=== PATIENT | female | born 1955 | race Caucasian/White ===

== ENCOUNTER → 2023-10-30 12:02 | Outpatient (REF) | payer MEDICARE, SELFPAY | LOC: WDC 12:02 | PROVIDERS: ATTENDING PHYSICIAN Physician Assistant Medical | DX: Z12.31 Encounter for screening mammogram for malignant neoplasm of breast (principal) | CPT/HCPCS: 77063; 77067 ==

== ENCOUNTER 2024-12-12 11:50 | Emergency (ER) | payer MEDICARE, SELFPAY ==
[2024-12-12 11:53] VITALS: BP 146/85
[2024-12-12 12:47] LABS: Urine Albumin 1+ (Neg - Trace); Urine Bilirubin Negative (Negative); Urine Character Clear (Clear); Urine Color Yellow; Urine Glucose Negative (Negative); Urine Ketone Negative (Negative); Urine Leukocyte 1+ (Negative); Urine Nitrite Negative (Negative); Urine Occult Blood Negative (Negative); Urine Urobilinogen Negative (Neg - 1+)
--- NOTE | 2024-12-12 12:53 | ED.GENMED ---
History of Present Illness
General
Chief Complaint: Breathing Problem
Source: patient
Exam Limitations: none
Time Seen by Provider: 12/12/24 12:41
History of Present Illness
History of Present Illness:
69yoF with a history of hypertension, hypothyroidism, and GERD presenting with her for evaluation of upper back pain. Patient reports developing pain in her bilateral upper back 3 days ago. She had a 2 hour flight the day before her
symptoms began. She denies any injuries to the area. Pain is worse with movement as well as breathing. She has been taking ibuprofen without any relief. She denies any calf pain, leg swelling, chest pain, dizziness, syncope. She was seen by her
PCP today for these symptoms and was sent to the ED for concern for a PE. Oxygen saturation was reportedly 90-93% in the office. Oxygen saturation 97% on arrival.
Past History
Past History
ED Past Medical History: HTN
ED Past Surgical History: Cholecystectomy, Gynecological, Orthopedic and Other
Social History
Tobacco: Non-smoker
Employment: Employed
Phy Exam
Physical Exam
Physical Exam:
Patient having a hard time sitting due to the pain
General Physical Exam
General Presentation: well appearing and no apparent distress
General age: appears stated age
General Skin: warm and dry
General Habitus: normal
General Mental: alert
ENT Exam
ENT Exam: normocephalic
Cardiovascular Exam
Cardiovascular Exam: regular rate/rhythm, no edema and systolic murmur
Pulmonary Exam
Pulmonary Exam: lungs clear, no respiratory distress, no rales, no crackles, no rhonchi and no wheezing
Neurological Exam
Neurological Exam: alert
[place] Coma Scale
Eye Opening: Spontaneous
Verbal Response: Oriented
Motor Response: Obeys Commands
GCS Total Score: 15
Musculoskeletal Exam
Musculoskeletal Exam: other (No tenderness to palpation of the thoracic region. No skin changes. )
Skin Exam
Skin Exam: normal color and warm/dry
Psychiatric Exam
Psychiatric Exam: normal mood/affect
Scores
Heart Failure Risk
Heart Failure Risk Score: Not Applicable
Course
Orders/Labs/Results
Orders:
Orders
12/12/24 11:56
ECG [Electrocardiogram (*1)] Urgent
Reason for Study: Shortness of Breath
12/12/24 11:57
EKG- Treatment ONCE
12/12/24 12:15
Urine Culture Reflexed from UA [Urinalysis Reflex To Culture] Urgent
Date Specimen was Collected: 12/12/24
Time Specimen was Collected: 12:11
Urine Microscopic Reflex Cult Urgent
Urine Culture Urgent
SCARLETT Source: U
Specimen Description:
Date Specimen was Collected: 12/12/24
Time Specimen was Collected: 12:11
12/12/24 12:51
CT Chest PE Study Urgent
Comment:
Reason For Exam: Pleuritic upper back pain
EKG- Treatment ONCE
Oxycodone/Acetaminophen [Percocet 5/325] 1 tablet PO NOW STA
12/12/24 13:15
Complete Blood Count/With Diff Urgent
Comprehensive Metabolic Panel Urgent
NT-proBNP Urgent
Troponin I Urgent
12/12/24 13:52
Potassium Chloride [KCl] 40 meq PO NOW STA
Abnormal Lab Results
12/12/24 12/12/24
12:15 13:15
RBC 3.98 L 10^6/uL
(4.20-5.40)
Hgb 11.4 L g/dL
(12.0-16.0)
Hct 33.0 L %
(37.0-47.0)
Absolute Neuts (auto) 7.0 H 10^3/uL
(1.4-6.5)
Absolute Monos (auto) 0.8 H 10^3/uL
(0.1-0.6)
Potassium 3.0 L mmol/L
(3.5-5.1)
Carbon Dioxide 33 H mmol/L
(22-30)
BUN 18 H mg/dl
(7-17)
Glucose 107 H mg/dl
(70-99)
Leukocyte Esterase Rfl 1+ A
(Negative)
Urine Albumin (Reflex) 1+ A
(Neg - Trace)
12/12/24 13:15
12/12/24 13:15
Vital Signs
Initial and Last Documented VS:
Initial Vital Signs
Temp Pulse Resp BP Pulse Ox
98.1 F 63 20 146/85 97
12/12/24 11:53 12/12/24 11:53 12/12/24 11:53 12/12/24 11:53 12/12/24 11:53
Last Documented Vital Signs
Temp Pulse Resp BP Pulse Ox
97.6 F 68 18 113/65 99
12/12/24 13:23 12/12/24 17:46 12/12/24 17:46 12/12/24 17:46 12/12/24 17:46
MDM/Problems Addressed
Differential Diagnosis Includes:
69yoF here with upper back pain x 3 days. Worse with movement and breathing. Recent flight to [place]. Sent to the ED by PCP for concern for PE. VSS. She is having a difficult time sitting during exam due to pain. Lungs CTA. No pitting edema or
skin changes to the lower extremities. Differential diagnosis includes but is not limited to: musculoskeletal, PE, pneumonia
Initial ED plan: Check cardiac labs, EKG, and CTA chest. Percocet for pain.
*EKG
Interpreted by ED Provider?: Yes
EKG Intrepretation Date: 12/12/24
Heart Rate: 61
Rate: normal
Rhythm: sinus and sinus arrhythmia
Delta: left axis deviation
Interval: normal interval
QRS Pattern: normal QRS
Ischemia: no ischemia
*Critical Care Note
Total Time (30-74mins, 75-104mins- exclusive of procedures): Not Applicable
Update Note
Update Note:
EKG shows normal sinus rhythm without ischemic changes. Troponin and BNP both normal. Potassium 3.[address] is negative for pulmonary embolism. Imaging does show severe multilevel degenerative disc disease in lower cervical and
thoracic region which is likely culprit of her symptoms. There is also moderate calcific atherosclerotic plaque in the coronary arteries which patient was notified of. No indication for hospitalization. Patient requesting prescription pain
medication and prescription for oxycodone was provided. She has an appointment scheduled with her PCP in 2 days. She was also advised to follow-up with orthopedics. Patient discharged in stable condition.
ED Attending Note
-
Portions of this chart may have been created with voice recognition software.� Occasional wrong word or��sound alike� substitutions may have occurred due to the inherent limitations of voice recognition software.
Discharge Plan
Departure
Patient Disposition: Home (Routine Discharge)
Date of Disposition: 12/12/24
Time of Disposition: 18:07
Patient with high blood pressure during this ER visit?: No
Discharge Problem:
Acute upper back pain, Degenerative disc disease
Instructions: Upper Back Pain ED
Prescriptions:
New
oxycodone 5 mg tablet
5 mg PO Q6H PRN (Reason: Pain) Qty: 12 0RF
Referrals:
Yvonne Cutler PA-C [Family Provider] -
Richard Blanchard MD [Active] -
Activity Restrictions/Additional Instructions:
Take Tylenol and ibuprofen for pain. Use lidocaine patches daily (12 hours on, 12 hours off). Take oxycodone only as needed for severe breakthrough pain.
Please follow-up with your family doctor and orthopedics. Return to the ER with any new or worsening symptoms.
Interventions
Interventions:
*Risk Screen - Suicide Last Done: 12/12/24 13:23
*General Assessment Last Done: 12/12/24 11:53
*Neglect/Abuse Screening Last Done: 12/12/24 13:23
*ED- Fall Risk Assessment Last Done: 12/12/24 13:23
*ED COVID-19 Vaccine History Last Done: 12/12/24 13:23
*Nursing Disposition Last Done: 12/12/24 18:15
ED- Cardiac Assessment Last Done: 12/12/24 13:23
ED- Pulmonary Assessment Last Done: 12/12/24 13:23
Discharge Date and Time
Discharge Date/Time: 12/12/24 18:15
Print Language: ALBANIAN
[2024-12-12 13:15] VITALS: BP 115/73
[2024-12-12] MEDS: PERCOCET 5/325 1 TABLET PO (13:20)
[2024-12-12 13:22] LABS: % Basophils 0.4 % (0-2); % Eosinophils 0.5 % (0-6); % Immature Granulocytes 0.3 % (0-0.5); % Monocytes 7.6 % (1.7-9.3); % Neutrophils 70.2 % (42.2-75.2); Absolute Eosinophils 0.1 10^3/uL (0-0.7); Absolute Lymphocytes 2.1 10^3/uL (1.2-3.4); Absolute Monocytes 0.8 10^3/uL (0.1-0.6); Hemoglobin 11.4 g/dL (12.0-16.0); Mean Corp Hgb Conc. 34.5 g/dL (33.0-37.0); Mean Corpuscular Hgb 28.6 pg (27.0-31.0); Mean Corpuscular Volume 82.9 fL (81.0-99.0); Mean Platelet Volume 10.3 fL (7.4-10.4); Nucleated Red Blood Cells % 0 %; Platelet Count 225 10^3/uL (130-400); Red Blood Cell Count 3.98 10^6/uL (4.20-5.40); Red Cell Dist. Width 13.8 % (11.5-14.5)
[2024-12-12 13:23] VITALS: BP 115/73; BMI 24.1
[2024-12-12 13:47] LABS: ALT (SGPT) 12 U/L (0-35); AST (SGOT) 18 U/L (14-36); Albumin 3.9 g/dl (3.5-5.0); Alkaline Phosphatase 71 U/L (38-126); Blood Urea Nitrogen 18 mg/dl (7-17); Calcium 9.4 mg/dl (8.4-10.2); Carbon Dioxide 33 mmol/L (22-30); Chloride 100 mmol/L (98-107); Estimated Creatinine Clearance 65 ml/min; Glucose 107 mg/dl (70-99); NT-proBNP 250 pg/ml; Sodium 142 mmol/L (135-145); Total Bilirubin 0.7 mg/dl (0.2-1.3); Total Protein 6.6 g/dl (6.3-8.2); Troponin I < 0.012 ng/ml; eGFR > 60.00
[2024-12-12 14:00] VITALS: BP 123/80
[2024-12-12 14:29] LABS: Urine Amorphous Seen; Urine Squamous Cell >30 /LPF (Few)
[2024-12-12 14:31] LABS: Urine Red Blood Cell 0-2 /HPF (0-2)
[2024-12-12] MEDS: KCL 40 MEQ PO (15:40)
[2024-12-12 15:43] VITALS: BP 116/80
--- NOTE | 2024-12-12 15:50 | EDRN ---
Mara HALE currently at the pts bedside
[2024-12-12 17:46] VITALS: BP 113/65
== END 2024-12-12 18:15 | disposition home or self-care (01) ==
LOC: EMR 11:50
PROVIDERS: Physician Assistant; EMERGENCY PHYSICIAN Emergency Medicine; FAMILY PHYSICIAN Physician Assistant Medical
DX: M50.30 Other cervical disc degeneration, unspecified cervical region (principal); M51.34 Other intervertebral disc degeneration, thoracic region; I10 Essential (primary) hypertension; K21.9 Gastro-esophageal reflux disease without esophagitis; E03.9 Hypothyroidism, unspecified; Z90.49 Acquired absence of other specified parts of digestive tract
CPT/HCPCS: 99284; 71275; 80053; 81003; 81015; 83880; 84484; 85025; 87086; 93005; Q9967

== ENCOUNTER → 2025-01-03 11:36 | Outpatient (REF) | payer MEDICARE, SELFPAY | LOC: WDC 11:36 | PROVIDERS: ATTENDING PHYSICIAN Physician Assistant Medical | DX: Z12.31 Encounter for screening mammogram for malignant neoplasm of breast (principal) | CPT/HCPCS: 77063; 77067 ==